=== PATIENT | female | born 1955 | race Caucasian/White ===

== ENCOUNTER 2017-07-06 16:20 | Outpatient (CLI) | payer MEDICARE ==
[2017-07-06 17:40] LABS: #Eosinphils 0.4 thou/uL (0.0-0.7); #Lymphocytes 1.7 thou/uL (1.20-3.40); #Monocytes 0.5 thou/uL (0.11-0.59); #Neutrophils 3.3 thou/uL (1.40-6.50); %Basophils 0.7 % (0.0-1.0); %Eosinophils 7.1 % (0.0-10.0); %Monocytes 7.6 % (0.0-10.0); %Neutrophils 55.6 % (42.0-75.0); Hemoglobin 11.5 g/dL (12.0-16.0); Mean Corpuscular HGB CONC 33.4 g/dL (32.0-36.0); Mean Platelet Volume 8.5 fL (7.4-10.4); Platelet Count 242 thou/uL (130-400); RBC Distribution Width 11.9 % (11.5-14.5); Red Blood Cell (RBC) Count 3.83 mill/uL (4.20-5.40); White Blood Cell (WBC) Count 5.9 thou/uL (4.8-10.8)
[2017-07-06 17:50] LABS: Anion Gap 12 mmol/L (10-20); BUN (Urea Nitrogen) 13 mg/dL (9.8-20.1); Calc. Creatinine Clearance 0 mL/min (70-130); Calcium 9.6 mg/dL (7.8-10.44); Carbon Dioxide 27 mmol/L (23-31); Chloride 105 mmol/L (98-107); Estimated GFR-MDRD 71; Glucose 102 mg/dL (80-115); Potassium 4.4 mmol/L (3.5-5.1); Sodium 140 mmol/L (136-145)
--- NOTE | 2017-07-09 17:32 | EKG ---
Test Reason : Blood Pressure : / mmHG Vent. Rate : 062 BPM Atrial Rate : 062 BPM P-R Int : 208 ms QRS Dur : 094 ms QT Int : 448 ms P-R-T Axes : 055 017 038 degrees QTc Int : 454 ms Normal sinus rhythm Low voltage QRS Borderline ECG When compared with ECG of 07-AUG-2015 14:38, Nonspecific T wave abnormality no longer evident in Anterolateral leads QT has shortened Confirmed by DR. Anel BURGOS ([id number]) on 07/09/2017 5:31:34 PM Referred By: ESTHELA Confirmed By:DR. Anel BURGOS
== END 2017-07-06 16:21 | disposition home or self-care (01) ==
LOC: LABBT 16:20
PROVIDERS: ATTEND Specialist
DX: Z01.810 Encounter for preprocedural cardiovascular examination (principal); Z01.812 Encounter for preprocedural laboratory examination; F20.9 Schizophrenia, unspecified; F31.9 Bipolar disorder, unspecified; F32.9 Major depressive disorder, single episode, unspecified
CPT/HCPCS: 80048; 85025; 93005; 93010

== ENCOUNTER 2017-07-10 09:30 | Day surgery (SDC) | payer MEDICARE ==
[2017-07-06 16:30] VITALS: BMI 35.2
--- NOTE | 2017-07-06 21:37 | HP ---
HISTORY OF PRESENT ILLNESS: Kitty Hughes is a 62-year-old female undergoing treatment for severe dep ression, anxiety, coupled with bipolar illness and schizophrenia. She has a seizure disorder. She n eeds IV access for a series of ECT treatments. Plan is to place as outpatient IV sedation, local ane sthesia. Risk of infection, bleeding, reoperation, malfunction of the MediPort explained, she consen ts. Questions answered. The patient is followed by Dr. Flynn. TOBACCO: None. ALCOHOL: None. MEDICATIONS: Keppra, Zyrtec, lithium, amlodipine, VESIcare, Lasix, Valium, Restoril, Singulair, K-Du r, Seroquel. PAST SURGICAL HISTORY: Performed in 2016, laparotomy for bowel obstruction. PAST MEDICAL HISTORY: As noted above, seizure disorder, schizophrenia, bipolar illness, severe depre ssion, anxiety, in need of ECT therapy. REVIEW OF SYSTEMS: Noncontributory. PHYSICAL EXAMINATION: GENERAL: Patient arrives to my office in a wheeled walker. VITAL SIGNS: 239 pounds, 69 inches, 138/88, 84, 98.4 degrees. HEENT: Unremarkable. LUNGS: Clear to auscultation. CARDIAC: Regular rate and rhythm without murmur or gallop. ABDOMEN: Soft, nontender, well-healed infraumbilical scar without hernias. EXTREMITIES: Unremarkable. ASSESSMENT AND PLAN: Need a MediPort access for ECT therapy. Risk and benefits explained, questions answered. We will plan for later this week.
[2017-07-10] MEDS ORDERED: CEFAZOLIN/Water 2 GM/20 ML SYRINGE ONE (09:56)
[2017-07-10] MEDS ORDERED: Bupivacaine HCl 0.5%/Epinephrine 1:200,000/PF 30 ml Vial ONE (10:42)
[2017-07-10] MEDS ORDERED: Midazolam HCl 2 mg/2 ml Vial ONE (10:56)
[2017-07-10] MEDS ORDERED: HYDROmorphone 0.5 MG/0.5 ML SYRINGE ONE (10:57)
--- NOTE | 2017-07-10 14:34 | RAD ---
CHEST 1 VIEW: Date: 07/10/17 HISTORY: Postop. COMPARISON: Radiograph dated 08/07/15. FINDINGS: Port catheter tips at inferior SVC. Cardiac silhouette and mediastinal contours within normal limits. No acute osseous abnormality. No pneumothorax or large effusion. IMPRESSION: No pneumothorax. Port catheter tip in good position. POS: [facility]
--- NOTE | 2017-07-10 16:41 | OP ---
DATE OF PROCEDURE: 07/10/2017 PREOPERATIVE DIAGNOSES: Severe depression, poor IV access, morbid obesity and need of intravenous ac cess for ECT treatments. POSTOPERATIVE DIAGNOSES: Severe depression, poor IV access, morbid obesity and need of intravenous a ccess for ECT treatments. PROCEDURE PERFORMED: Left subclavian vein MediPort, fluoroscopy used. SURGEON: Dr. Arguelles. ANESTHESIA: 0.5% Marcaine with epinephrine 30 mL mixed with Xylocaine, 10 mL. PROCEDURE IN DETAIL: The patient was taken to the operating room where under intravenous sedation, n brianna and chest were prepped with ChloraPrep and draped in routine fashion. Local anesthetic infiltrat ed into the skin and subcutaneous tissue about the operative site. Trocar catheter cannulated the gilmore bclavian vein, left, infraclavicular approach, obtaining good return of venous blood. J-wire threade d. Trocar catheter removed. Skin incised and enlarged sharply carried down through the skin and sub cutaneous tissue. Subcutaneous pocket dissected free to accommodate the port. Good hemostasis noted . Dilator and pull-away sheath placed over the J-wire and subclavian vein and dilator and J-wire rem ok. Catheter placed with pull-away sheath. Pull-away sheath removed. Fluoroscopy used to place t he catheter in optimal position in the superior vena cava and the catheter tailored to length, connec rogelio to the MediPort, which was placed in subcutaneous pocket and secured with 2 interrupted sutures o f 3-0 Prolene. Subcutaneous tissue approximated with 3-0 Monocryl, skin with subdermal 4-0 Monocryl and DermaGlue applied. MediPort accessed with a Calle needle, aspirated blood, and flushed with hepa rinized saline solution. Fluoroscopic images revealed good line and port placement.
== END 2017-07-10 13:20 | disposition home or self-care (01) ==
LOC: SDC 09:30
PROVIDERS: ATTEND Specialist
PROC: 05H633Z Insertion of Infusion Device into Left Subclavian Vein, Percutaneous Approach (ICD-10-PCS; principal; 2017-07-10)
PROC: B517ZZA Fluoroscopy of Left Subclavian Vein, Guidance (ICD-10-PCS; 2017-07-10)
DX: F32.9 Major depressive disorder, single episode, unspecified (principal); F41.9 Anxiety disorder, unspecified; F20.9 Schizophrenia, unspecified; G40.909 Epilepsy, unspecified, not intractable, without status epilepticus; E66.01 Morbid (severe) obesity due to excess calories; Z68.35 Body mass index [BMI] 35.0-35.9, adult; Z88.0 Allergy status to penicillin; Z88.1 Allergy status to other antibiotic agents; Z88.2 Allergy status to sulfonamides; Z91.048 Other nonmedicinal substance allergy status; Z79.899 Other long term (current) drug therapy; Z98.890 Other specified postprocedural states
CPT/HCPCS: 36561; 71045; 76000; C1788; J0670; J1170; J1642; J2250

== ENCOUNTER 2018-05-01 02:13 | Emergency (ER) | payer MEDICARE ==
[2018-05-01 03:00] LABS: #Eosinphils 0.3 thou/uL (0.0-0.7); #Lymphocytes 1.8 thou/uL (1.20-3.40); #Monocytes 0.5 thou/uL (0.11-0.59); #Neutrophils 2.3 thou/uL (1.40-6.50); %Basophils 0.7 % (0.0-1.0); %Lymphocytes 37.1 % (21.0-51.0); %Neutrophils 46.2 % (42.0-75.0); Hemoglobin 11.7 g/dL (12.0-16.0); Mean Corpuscular HGB CONC 33.4 g/dL (32.0-36.0); Mean Corpuscular Hemoglobin 30.9 pg (27.0-31.0); Mean Corpuscular Volume 92.3 fL (78.0-98.0); Mean Platelet Volume 8.9 fL (7.4-10.4); Platelet Count 219 thou/uL (130-400); RBC Distribution Width 12.1 % (11.5-14.5); White Blood Cell (WBC) Count 4.9 thou/uL (4.8-10.8)
[2018-05-01 03:10] LABS: ALT (SGPT) 26 U/L (8-55); AST (SGOT) 18 U/L (5-34); Albumin 3.9 g/dL (3.4-4.8); Alkaline Phosphatase 94 U/L (40-150); Anion Gap 14 mmol/L (10-20); BUN (Urea Nitrogen) 15 mg/dL (9.8-20.1); Bilirubin, Total 0.2 mg/dL (0.2-1.2); Calc. Creatinine Clearance 0 mL/min (70-130); Calcium 9.3 mg/dL (7.8-10.44); Carbon Dioxide 28 mmol/L (23-31); Chloride 104 mmol/L (98-107); Estimated GFR-MDRD 71; Globulin 3.2 g/dL (2.4-3.5); Glucose 103 mg/dL (80-115); Potassium 4.1 mmol/L (3.5-5.1); Protein, Total 7.1 g/dL (6.0-8.3); Sodium 142 mmol/L (136-145)
--- NOTE | 2018-05-01 09:53 | CT ---
PRELIMINARY REPORT/[facility]/EMERGENTY AFTER-HOURS PROCEDURE CT Angiography Chest With Contrast EXAM DATE/TIME: 05/01/2018 3:56 AM CLINICAL HISTORY: 62 years old, female; Pain and signs and symptoms; Dyspnea and shortness of breath; Chest pain; Patie nt HX: F62 reports to ed C/O SOB, worsening the last 45 mins. PT reports substernal chest pain. PT wa s coughing and congested. PT recently saw a director agricultural services, who said her heart was in good condition. PT has a "lung" doctor appointment on 06/09/17. Pmhx blood clot, neuropathy, hptn, an xiety. TECHNIQUE: Axial computed tomographic angiography images of the chest with intravenous contrast using CT angiogr aphy protocol. MIP reconstructed images were created and reviewed. COMPARISON: No relevant prior studies available. FINDINGS: Tubes, catheters and devices: Left Port-A-Cath terminating in the SVC. Pulmonary arteries: No pulmonary embolus identified. Aorta: No aortic aneurysm. No aortic dissection. Lungs: Mild peribronchial thickening and minimal scattered distal bronchiolar mucous plugging. Small area of tree in bud nodularity laterally in the right upper lobe. No mass or consolidation. Pleural space: No pneumothorax. No pleural effusion. Heart: Minimal anterior pericardial effusion. Lymph nodes: Unremarkable. No enlarged lymph nodes. Bones/joints: Unremarkable. No acute fracture. Soft tissues: Unremarkable. IMPRESSION: 1. No evidence pulmonary embolus. 2. Mild bronchial inflammation. Thank you for allowing us to participate in the care of your patient. Dictated and Authenticated by: Tito Emerson MD 05/01/2018 6:08 AM Central Time ([place] & [place]) FINAL REPORT EMERGENT AFTER HOURS CT ANGIOGRAM THORAX WITH IV CONTRAST AND 3D RECONSTRUCTIONS: DATE: 05/01/2018. HISTORY: Dyspnea and worsening shortness of breath. IMPRESSION: 1. No CT evidence of a pulmonary embolus. 2. Thoracic aorta is normal in caliber without evidence of an aortic dissection. 3. Mild peribronchial thickening bilaterally. There are reticulonodular densities in the lateral as pect of the right upper lobe. Findings may be related to infectious and/or inflammatory process. 4. Minimal pericardial effusion. 5. Mildly prominent subcarinal lymph node measuring 12 mm in short axis dimension which may be react naty in origin. 6. Bilateral breast prostheses. 7. Findings are in agreement with the preliminary report by [facility]. POS: [facility]
--- NOTE | 2018-05-01 10:11 | RAD ---
ONE VIEW CHEST: COMPARISON: 12/29/2014. HISTORY: Shortness of breath and dyspnea. FINDINGS: A left-sided MediPort catheter is identified and terminates in the region of the superior vena cava. Normal cardiac silhouette. Pulmonary vessel and hilum are normal. Costophrenic angles are clear. No consolidation or mass. NO pneumothorax or osseous abnormalities. IMPRESSION: No acute cardiopulmonary process. POS: [facility]
== END 2018-05-01 06:30 | disposition home or self-care (01) ==
LOC: ERS 02:13
DX: R06.00 Dyspnea, unspecified (principal); I10 Essential (primary) hypertension; E03.9 Hypothyroidism, unspecified; E66.9 Obesity, unspecified; Z79.899 Other long term (current) drug therapy
CPT/HCPCS: 36415; 71045; 71275; 80053; 83880; 84484; 85025; 85379; 93005; 94760

== ENCOUNTER 2018-08-28 17:40 | Emergency (ER) | payer MEDICARE ==
[2018-08-28 20:10] LABS: #Eosinphils 0.5 thou/uL (0.0-0.7); #Lymphocytes 1.8 thou/uL (1.20-3.40); #Monocytes 0.7 thou/uL (0.11-0.59); #Neutrophils 3.1 thou/uL (1.40-6.50); %Basophils 0.7 % (0.0-1.0); %Eosinophils 7.7 % (0.0-10.0); %Lymphocytes 29.9 % (21.0-51.0); %Monocytes 10.9 % (0.0-10.0); %Neutrophils 50.7 % (42.0-75.0); Hemoglobin 11.4 g/dL (12.0-16.0); Mean Corpuscular HGB CONC 32.1 g/dL (32.0-36.0); Mean Corpuscular Hemoglobin 29.3 pg (27.0-31.0); Mean Corpuscular Volume 91.2 fL (78.0-98.0); Mean Platelet Volume 9.6 fL (7.4-10.4); Platelet Count 215 thou/uL (130-400); White Blood Cell (WBC) Count 6.2 thou/uL (4.8-10.8)
--- NOTE | 2018-08-28 20:23 | CT ---
CT CERVICAL SPINE WITH CORONAL AND SAGITTAL REFORMATIONS: 08/28/18 HISTORY: Fall, injury, neck pain. FINDINGS/IMPRESSION: There is loss of the cervical lordosis. Multilevel degenerative changes are present in the cervical s pine. No acute fracture, subluxation or facet malalignment is identified. POS: [facility]
[2018-08-28 20:33] LABS: ALT (SGPT) 26 U/L (8-55); AST (SGOT) 17 U/L (5-34); Albumin 4.1 g/dL (3.4-4.8); Alkaline Phosphatase 103 U/L (40-150); Anion Gap 12 mmol/L (10-20); BUN (Urea Nitrogen) 18 mg/dL (9.8-20.1); Bilirubin, Total 0.2 mg/dL (0.2-1.2); CK (CPK) 128 U/L (29-168); Calc. Creatinine Clearance 0 mL/min (70-130); Carbon Dioxide 28 mmol/L (23-31); Chloride 105 mmol/L (98-107); Estimated GFR-MDRD 67; Glucose 106 mg/dL (80-115); Potassium 4.3 mmol/L (3.5-5.1); Protein, Total 7.1 g/dL (6.0-8.3); Sodium 141 mmol/L (136-145)
--- NOTE | 2018-08-28 20:34 | CT ---
CT BRAIN WITHOUT CONTRAST: 08/28/18 HISTORY: Fall, headache. FINDINGS: Comparison made with exam of 05/06/15. No evidence of acute infarct, hemorrhage, midline shift, or abnormal extra-axial fluid collections a re seen. The ventricular size is appropriate and the basilar cisterns patent. The bony calvarium is i ntact. The visualized paranasal sinuses and mastoid air cells are well aerated. IMPRESSION: No CT evidence of acute intracranial process. POS: [facility]
--- NOTE | 2018-08-28 20:35 | RAD ---
XR Chest 1 View Portable HISTORY: Syncope COMPARISON: 05/01/2018 FINDINGS: The heart size is normal. The lungs are well expanded without focal areas of consolidation, pneumothorax or pleural effusions. Left-sided Port-A-Cath remains in place. IMPRESSION: No radiographic evidence of acute cardiopulmonary process.
[2018-08-28] MEDS ORDERED: traMADol HCl 50 MG TAB ONE (21:15)
== END 2018-08-28 21:47 | disposition home or self-care (01) ==
LOC: ERS 17:40
DX: R55 Syncope and collapse (principal); S09.91XA Unspecified injury of ear, initial encounter; E03.9 Hypothyroidism, unspecified; I10 Essential (primary) hypertension; F32.9 Major depressive disorder, single episode, unspecified; F41.9 Anxiety disorder, unspecified; F20.9 Schizophrenia, unspecified; E66.9 Obesity, unspecified; Z79.899 Other long term (current) drug therapy; W18.30XA Fall on same level, unspecified, initial encounter
CPT/HCPCS: 70450; 71045; 72125; 80053; 82550; 83880; 84484; 85025; 93005; J1642

== ENCOUNTER 2019-06-27 12:48 | Outpatient (CLI) | payer MEDICARE ==
--- NOTE | 2019-06-27 13:22 | RAD ---
RADIOGRAPH CHEST 2 VIEWS: DATE: 06/27/2019 HISTORY: 64-year-old female with dyspnea FINDINGS: There is no airspace density, pulmonary edema, pleural effusion, pneumothorax, or cardiomegaly. IMPRESSION: No acute cardiopulmonary findings.
== END 2019-06-27 12:49 | disposition home or self-care (01) ==
LOC: BICRAD 12:48
PROVIDERS: ATTEND Specialist
DX: R06.00 Dyspnea, unspecified (principal)
CPT/HCPCS: 71046